=== PATIENT | male | born 1950 ===

== ENCOUNTER 2017-10-22 17:16 | Emergency (ER) | payer OTHER | END 2017-10-22 18:19 | disposition home or self-care (01) | LOC: BURERS 17:16 | DX: K64.5 Perianal venous thrombosis (principal); K64.8 Other hemorrhoids; E78.5 Hyperlipidemia, unspecified; I10 Essential (primary) hypertension; Z79.899 Other long term (current) drug therapy | CPT/HCPCS: 99282 ==